=== PATIENT | male | born 1980 | race Caucasian/White ===

== ENCOUNTER 2017-01-11 09:20 | Emergency (ER) | payer OTHER ==
[2017-01-11 09:51] VITALS: BP 165/66; PULSE 52; RESP 18; TEMP 98; O2SAT 97
--- NOTE | 2017-01-11 10:26 | UCPHY ---
H & P Time Seen by Provider: 01/11/17 10:25 Smoking Status: Never smoked Constitutional: Initial Vital Signs Temperature (C) 36.6 C 01/11/17 09:46 Heart Rate 52 L 01/11/17 09:46 Respiratory Rate 18 01/11/17 09:46 Blood Pressure 165/66 H 01/11/17 09:46 O2 Sat (%) 97 01/11/17 09:46 O2 Delivery Mode Room Air Allergies/Adverse Reactions: No Known Allergies Allergy (Unverified 01/11/17 09:46) Home Medications: Medication Instructions Recorded Hydrocodone/Acetaminophen [[place] 1 - 2 tab PO Q6H PRN #16 tab 01/11/17 5/325 (*)] Methocarbamol 500 mg PO TID PRN #30 tablet 01/11/17 Departure - Departure Disposition: Home, Routine, Self-Care Clinical Impression: Sciatica, Back pain Condition: Good Instructions: Sciatica (ED), Acute Low Back Pain (ED) Referrals: NONE *PRIMARY CARE P,. [Primary Care Provider] - As per Instructions Prescriptions: Hydrocodone/Acetaminophen [[place] 5/325 (*)] 1 - 2 tab PO Q6H PRN #16 tab PRN Reason: Pain, Moderate Methocarbamol 500 mg PO TID PRN #30 tablet PRN Reason: Spasms - PQRS PQRS Measurement: na
== END 2017-01-11 11:09 | disposition home or self-care (01) ==
LOC: CED 09:20
DX: M54.9 Dorsalgia, unspecified (principal); M54.30 Sciatica, unspecified side
CPT/HCPCS: G0463-PO